=== PATIENT | female | born 1935 | race Caucasian/White ===

== ENCOUNTER → 2018-08-26 | Outpatient (CLI) | payer MEDICARE | LOC: M.RAD 08-19 13:00 | DX: N64.4 Mastodynia (principal) ==

== ENCOUNTER 2019-06-02 12:01 | Inpatient (IN) | payer MEDICARE ==
[~2019-06-02] VITALS: Ht 147.3 cm; Wt 54.9 kg
[2019-06-02 12:15] VITALS: BP 108/86
[2019-06-02] MEDS ORDERED: ASPIRIN EC325 M1 PO (12:25)
[2019-06-02] MEDS ORDERED: ARTHRITIS PAIN650 M3 PO (12:25)
[2019-06-02] MEDS ORDERED: NORVASC5 M1 PO (12:25)
[2019-06-02] MEDS ORDERED: TRAMADOL 50 MG50 MG PO (12:26)
[2019-06-02] MEDS ORDERED: ACTONEL 35 MG35 M1 PO (12:26)
[2019-06-02 13:07] LABS: HEMATOCRIT 39.4 % (37.0-47.0); HEMOGLOBIN 13.1 gm/dL (12.0-15.0); MCH 28.6 pg (26.0-34.0); MCHC 33.2 g/dL (28.0-37.0); MCV 86.1 fL (80.0-100.0); MPV 7.2 fl. (7.2-11.1); NUCLEATED RBCS 0 /100WBC; PLATELET COUNT* 422 thou/uL (150-400); RBC 4.57 mil/uL (4.20-5.00); RDW-CV 13.8 % (10.5-14.5); WBC 14.9 thou/uL (4.0-11.0)
[2019-06-02 13:23] LABS: APTT 27.8 Seconds (25.0-31.3); PROTIME 10.4 Seconds (9.20-11.50)
[2019-06-02 13:24] LABS: CALCIUM 8.1 mg/dL (8.5-10.1); CREATININE 0.8 mg/dL (0.6-1.3); POTASSIUM 3.5 mmol/L (3.5-5.1)
[2019-06-02 13:35] LABS: ALBUMIN 3.2 g/dL (3.4-5.0); TOTAL BILIRUBIN 0.5 mg/dL (<0.1-1.0)
[2019-06-02 14:11] LABS: ESR (SEDRATE) 38 mm/hr (0-30)
[2019-06-02 14:49] LABS: URINE BLOOD NEGATIVE (Negative); URINE CLARITY SL CLOUDY; URINE COLOR YELLOW; URINE GLUCOSE-RANDOM NEGATIVE (Negative); URINE KETONES 2+ (Negative); URINE LEUKOCYTES-REFLEX NEGATIVE (Negative); URINE NITRITE-REFLEX NEGATIVE (Negative); URINE PROTEIN TRACE (Negative); URINE SPECIFIC GRAVITY 1.025 (1.005-1.030)
[2019-06-02 14:52] LABS: URINE BILIRUBIN 1+ (Negative)
[2019-06-02 14:55] LABS: ICTOTEST (BILI CONFIRMATORY) Negative (Negative)
[2019-06-02 15:06] LABS: SQUAMOUS 0-3 Few /LPF (0-3)
[2019-06-02 15:07] LABS: BACTERIA-REFLEX 1-9 Few /HPF (None Seen); HYALINE CASTS 0-3 Few /LPF (None Seen); MUCUS >6 Heavy strn/LPF (None Seen); URINE RBC 0-2 Rare /HPF (0-2); URINE WBC-REFLEX 0-5 Rare /HPF (0-5)
[2019-06-02 15:08] LABS: ABSOLUTE EOSINOPHILS 0.4 thou/uL (0.0-0.7); ABSOLUTE MONOCYTES 1.2 thou/uL (0.0-1.2); ABSOLUTE NEUTROPHILS 12.2 thou/uL (1.6-8.1)
[2019-06-02 15:09] LABS: PLATELET ESTIMATE INCREASED
[2019-06-02 15:09] LABS: CALCIUM OXALATE 0-3 Few /LPF (None Seen)
[2019-06-02 17:34] VITALS: BP 139/60
--- NOTE | 2019-06-02 17:38 | NUR ---
pt remained alert to self. white in place. awaiting iv placement, multiple attempts made with no success. fall risk precautions in place. hourly rounding completed. will continue to monitor.
[2019-06-02 19:50] VITALS: BP 135/57
[2019-06-03 03:23] VITALS: BP 122/78
[2019-06-03 04:39] LABS: ABSOLUTE LYMPHOCYTES 0.7 thou/uL (0.8-5.3); ABSOLUTE MONOCYTES 0.1 thou/uL (0.0-1.2); ABSOLUTE NEUTROPHILS 5.5 thou/uL (1.6-8.1); BASOPHILS 0.2 %; HEMATOCRIT 35.3 % (37.0-47.0); HEMOGLOBIN 11.8 gm/dL (12.0-15.0); LYMPHOCYTES 10.8 %; MCH 28.9 pg (26.0-34.0); MCHC 33.5 g/dL (28.0-37.0); MCV 86.2 fL (80.0-100.0); MONOCYTES 1.8 %; MPV 7.5 fl. (7.2-11.1); NUCLEATED RBCS 0 /100WBC; PLATELET COUNT* 392 thou/uL (150-400); POLYS 87.2 %; RDW-CV 13.9 % (10.5-14.5); WBC 6.3 thou/uL (4.0-11.0)
--- NOTE | 2019-06-03 04:44 | NUR ---
PATIENT HAS REMAINED ALERT AND ORIENTED TO SELF, LOOKING AT THE CLOCK, THE TIME AND AWARE THAT SHE HAS A BAD RASH. POOR SAFETY JUDGEMENT AND IMPULSIVE. HIGH FALL RISK INTERVENTIONS IN PLACE WITH USE OF BED AND CHAIR ALARMS, YELLOW SOCKS AND ARMBAND. PULLED OUT IV AT 2200. REPLACED FOR IV STEROID AND REMAINDER OF ONE LITER OF FLUIDS. AT MIDNIGHT SITE INFILTRATED AND PATIENT REFUSING TO HAVE ANOTHER ONE STARTED. DURING THE NIGHT SHE STATES SHE WOULD THINK ABOUT ONE IN THE MORNING. TURNING SELF IN BED. VITAL SIGNS STABLE. CONTINUE TO MONITOR.
[2019-06-03 04:53] LABS: CALCIUM 7.9 mg/dL (8.5-10.1); CREATININE 0.5 mg/dL (0.6-1.3); MAGNESIUM 2.3 mg/dL (1.8-2.4); POTASSIUM 3.8 mmol/L (3.5-5.1)
--- NOTE | 2019-06-03 07:27 | NUR ---
0700 PATIENT VERY UPSET AND SAYS SHE IS GOING HOME. UNABLE TO DISTRACT HER FROM THIS LINE OF THOUGHT AND GETTING VERY AGGITATED. DR. BRONSON ON UNIT. SITTER FOR SAFETY ORDERED. CALL TO SON AND MESSAGE LEFT REGARDING ANY AVAILABLE VISITS THAT MIGHT HELP HER BE MORE CALM. DAYSHIFT UPDATED.
[2019-06-03 09:35] VITALS: BP 84/69
[2019-06-03 16:00] VITALS: BP 129/82
--- NOTE | 2019-06-03 18:01 | NUR ---
PATIENT PLEASANT, NEEDS REDIRECTING AND MOD AMT CUEING FREQUENTLY. THERAPY EVAL DONE THIS SHIFT, PATIENT NOTED AMBULATING W/ FWW USING STEADY GAIT. SON IN TO SEE PATIENT, REVIEW OF POC DONE W/ HIM. SON STATES THAT PATIENT LIVES WITH HIM AND HE IS HER CAREGIVER. PATIENT NOTED W/ SEVERE DRY AND FLAKING SKIN, LOTION APPLIED MULTIPLE TIMES, NOTED IMPROVED THIS EVENING, PATIENT DENIES ITCHING. SKIN RASHING/REDNESS NOTED IMPROVED THRU SHIFT. GRAY CATH NOTED WNL. YELLOW URINE NOTED IN BAG. ATTEMPT TO RESTART IV AT 1200: 22GA, SECURED, +BLOOD RETURN. 1330: PATIENT PULLED OUT GRAY. MSG SENT TO PHYSICIAN FOR POC RE IV. PATIENT CURRENTLY RESTING IN RECLINER. CHAIR ALARM ON. TV ON. BLE ELEVATED. NOTED SWELLING IN EXT DECREASED THRU SHIFT. HRLY ROUNDS DONE. CALL LIGHT IN REACH. ~TJRN
[2019-06-03 20:45] VITALS: BP 116/61
--- NOTE | 2019-06-04 04:12 | NUR ---
PATIENT HAS REMAINED ALERT AND ORIENTED X 1 DURING THE SHIFT. QUITE IMPULSIVE AT SHIFT START AND SETTING OFF BED ALARM MULTIPLE TIMES PRIOR TO 2100. CALM AND COOPERATIVE THE REMAINDER OF THE EVENING AND HAS BEEN RESTING QUIETLY ON HOURLY ROUNDS. PATIENT WAS AGREEABLE TO HAVE IV RESTARTED 2099 AND AFTER MULTIPLE ATTEMPTS 22G TO RIGHT FOREARM PLACED FOR 2199 IV STEROIDS. MEDICATED FOR HEADACHE AT HS TO GOOD EFFECT. VITAL SIGNS STABLE. DIFFICULT TO TELL IF BODY RASH HAS IMPROVED. CONTINUE TO MONITOR.
[2019-06-04 08:00] VITALS: BP 143/76
[2019-06-04] MEDS ORDERED: NEXIUM40 MG PO (13:05)
[2019-06-04] MEDS ORDERED: SINGULAIR 10 MG10 M1 PO (13:05)
[2019-06-04] MEDS ORDERED: THERA M PLUS T1 EAC2 PO (13:06)
[2019-06-04] MEDS ORDERED: ACEROLA C500 MG PO (13:06)
--- NOTE | 2019-06-04 14:26 | NUR ---
PT.'S SON HERE. PT.BEING DISCHARGED TODAY. SPOKE WITH HIM AND PT. HE ANSWERED MOST OF THE QUESTIONS. HE SAID PT.HAS A CANE AND WALKER AT HOME. SHE LIVES WITH HIM. HE SUBSTITUTE TEACHES, SO PT. IS HOME ALONE DURING THE DAY WHEN HE WORKS. HE SAID SHE HAS NEVER ATTEMPTED TO LEAVE THE HOUSE WHEN HE IS NOT THERE. HE NEVER LEAVES HER ALONE DURING THE NIGHT. HE HAS A FRIEND THAT CHECKS ON HER. HE SAID SHE LIKES TO SIT AND LOOK OUT THE PICTURE WINDOW DURING THE DAY. HE GIVES HER ALL OF HER MEDICATIONS. HE FIXES HER BREAKFAST AND SUPPER. THERE IS FOOD IN THE REFRIDGERATOR. SHE SNACKS FOR LUNCH. HE SAID SHE HAS GAINED ABOUT 20 LBS IN THE 4 YRS SHE HAS LIVED WITH HIM. SHE CAN SHOWER AND DRESS HERSELF. HE SAID HE DOES NOT LET HER SHOWER IF HE IS NOT HOME. THERE ARE GRAB BARS IN THE BATHROOM/SHOWER. HER DAUGHTER,ISRAEL, IS HER DPOA BUT TD SAID SHE WORKS 2 JOBS. HE SAID PT.DOES HAVE AN APPT.IN A WEEK TO SEE , HER PCP.
[2019-06-04 15:02] VITALS: BP 143/76
--- NOTE | 2019-06-04 16:00 | NUR ---
PATIENT DISCHARGED TO HOME. PATIENT ALERT, FORGETFUL THRU SHIFT. COOPERATIVE W/ ASSESS AND CARES. IV DISCONTINUED. GRAY CATH DISCONTINUED ORDERED. SON PRESENT AT TIME OF DISCHARGE. DISCUSSION OF PATIENT SAFETY AT HOME W/ SON. SON STATES THAT HE IS A [employer] ARCHITECT AND WHEN HE IS AT WORK, PATIENT IS HOME ALONE. STATES THAT NEIGHBORS ARE AVAILABLE TO VISIT HER WHEN NEEDED. SON STATES THAT HE IS HOME WITH HER AT [facility] ALWAYS. SON FEELS THAT THERE IS NO CONCERN WITH PATIENT ALONE DURING THE DAY. COPY OF DISCHARGE INSTRUCTIONS AND ORIG SCRIPTS GIVEN TO SON. PATIENT DRESSED IN HOSPITAL GOWN CLOTHES WERE NOT CLEAN TO RETURN HOME IN. ROHINISHABBIRRachelle LEFT PATIENT ROOM W/ SON. PATIENT ESCORTED PER PEDIS TO AWAITING VEHICLE IN WC W/ STAFF MEMBER PRESENT. NO FURTHER NEEDS VOICED. CASE MANAGEMENT NOTIFIED AT TIME OF DISCHARGE OF HOME SITUATION. ~TJRN
== END 2019-06-04 16:00 | disposition home or self-care (01) | DRG 607 ==
LOC: M.ERS 12:01 → M.ORTHSURG 14:07 → M.TBA-ER 14:07 → M.ORTHSURG 16:24
PROVIDERS: Physician Assistant; ADMIT Family Medicine
DX: L27.0 Generalized skin eruption due to drugs and medicaments taken internally (principal); J98.11 Atelectasis; E44.0 Moderate protein-calorie malnutrition; I12.9 Hypertensive chronic kidney disease with stage 1 through stage 4 chronic kidney disease, or unspecified chronic kidney disease; E78.5 Hyperlipidemia, unspecified; I25.10 Atherosclerotic heart disease of native coronary artery without angina pectoris; G89.29 Other chronic pain; M81.0 Age-related osteoporosis without current pathological fracture; G30.9 Alzheimer's disease, unspecified; F02.80 Dementia in other diseases classified elsewhere, unspecified severity, without behavioral disturbance, psychotic disturbance, mood disturbance, and anxiety; E78.00 Pure hypercholesterolemia, unspecified; N18.2 Chronic kidney disease, stage 2 (mild); D72.829 Elevated white blood cell count, unspecified; T46.1X5A Adverse effect of calcium-channel blockers, initial encounter; M54.9 Dorsalgia, unspecified; Z88.2 Allergy status to sulfonamides; Z88.8 Allergy status to other drugs, medicaments and biological substances; Z88.0 Allergy status to penicillin; Z91.013 Allergy to seafood; Z79.899 Other long term (current) drug therapy; Z79.82 Long term (current) use of aspirin; Z81.8 Family history of other mental and behavioral disorders; Z68.25 Body mass index [BMI] 25.0-25.9, adult; Y92.89 Other specified places as the place of occurrence of the external cause; Z23 Encounter for immunization

== ENCOUNTER 2019-07-02 20:05 | Emergency (ER) | payer MEDICARE ==
[~2019-07-02] VITALS: Ht 147.3 cm; Wt 59.0 kg
[~2019-07-02 20:05] MED LIST: ACEROLA C500 MG PO; ACTONEL 35 MG35 M1 PO; ARTHRITIS PAIN650 M3 PO; ASPIRIN EC325 M1 PO; NEXIUM40 MG PO; NORVASC5 M1 PO; SINGULAIR 10 MG10 M1 PO; THERA M PLUS T1 EAC2 PO; TRAMADOL 50 MG50 MG PO
[2019-07-02 20:44] LABS: ABSOLUTE BASOPHILS 0.1 thou/uL (0.0-0.2); ABSOLUTE EOSINOPHILS 0.3 thou/uL (0.0-0.7); ABSOLUTE LYMPHOCYTES 1.5 thou/uL (0.8-5.3); ABSOLUTE MONOCYTES 0.6 thou/uL (0.0-1.2); ABSOLUTE NEUTROPHILS 5.4 thou/uL (1.6-8.1); BASOPHILS 0.8 %; EOSINOPHILS 4.1 %; HEMATOCRIT 39.8 % (37.0-47.0); HEMOGLOBIN 13.2 gm/dL (12.0-15.0); LYMPHOCYTES 18.9 %; MCH 28.6 pg (26.0-34.0); MCHC 33.1 g/dL (28.0-37.0); MCV 86.4 fL (80.0-100.0); MONOCYTES 7.9 %; MPV 7.1 fl. (7.2-11.1); NUCLEATED RBCS 0 /100WBC; PLATELET COUNT* 329 thou/uL (150-400); POLYS 68.3 %; RDW-CV 14.6 % (10.5-14.5); WBC 7.9 thou/uL (4.0-11.0)
[2019-07-02] MEDS ORDERED: DOXYCYCLINE HY100 M3 PO (20:49)
[2019-07-02] MEDS ORDERED: EVISTA60 MG PO (20:50)
[2019-07-02 20:53] LABS: CALCIUM 8.5 mg/dL (8.5-10.1); CREATININE 0.8 mg/dL (0.6-1.3); POTASSIUM 4.7 mmol/L (3.5-5.1)
[2019-07-02 21:05] LABS: ALBUMIN 3.7 g/dL (3.4-5.0); CK-MB MASS 1.2 ng/mL (<0.5-3.6); MAGNESIUM 2.1 mg/dL (1.8-2.4); TOTAL BILIRUBIN 0.3 mg/dL (<0.1-1.0)
[2019-07-03 00:46] VITALS: BP 155/63
--- NOTE | 2019-07-03 12:34 | EKG ---
[place] [address] ELECTROCARDIOGRAM REPORT Name: VISHNUDAVIDLISHA R Room: [facility]#: [id number] Admission: 07/02/19 Attend Phys: Discharge: 07/03/19 Date of : 33 Report #: [id number] THIS REPORT FOR: //name// [facility] ED Test Date: 2019-07-02 Test Time: 20:11:43 Pat Name: LISHA MARES Department: Room: Gender: F Assistant Manager Pt: : 1935 Requested By: Mj Greenberg Order Number: [id number] MD: Jhonathan Puckett Measurements Intervals [place] Rate: 87 P: 17 [place]: 142 QRS: 7 QRSD: 79 T: -5 QT: 386 QTc: 465 Interpretive Statements Sinus rhythm Inferior infarct, age indeterminate No previous ECG available for comparison Electronically Signed On 07-03-2019 12:34:01 [employer]IEF by Jhonathan Puckett [email or web address] <ELECTRONICALLY SIGNED> By: Jhonathan Puckett MD, [facility] 07/03/19 1234 10 10 Jhonathan Puckett MD, FACC /EPI
== END 2019-07-03 01:07 | disposition home or self-care (01) ==
LOC: M.ERS 20:05
PROVIDERS: Family Medicine
DX: R07.89 Other chest pain (principal); I12.9 Hypertensive chronic kidney disease with stage 1 through stage 4 chronic kidney disease, or unspecified chronic kidney disease; N18.9 Chronic kidney disease, unspecified; E78.00 Pure hypercholesterolemia, unspecified; Z88.1 Allergy status to other antibiotic agents; Z88.0 Allergy status to penicillin; Z88.6 Allergy status to analgesic agent; Z88.2 Allergy status to sulfonamides; Z91.041 Radiographic dye allergy status; Z91.013 Allergy to seafood; Z88.8 Allergy status to other drugs, medicaments and biological substances